=== PATIENT | male | born 1975 | race Two or more races ===

== ENCOUNTER 2018-08-03 18:40 | Inpatient (IN) | payer SELFPAY ==
[~2018-08-03] VITALS: Ht 170.2 cm; Wt 70.8 kg
[2018-08-04] MEDS ORDERED: ONDANSETRON HCL 4MG/2ML INJ IV STA (01:23)
[2018-08-04] MEDS ORDERED: MORPHINE SULFATE 4 MG/ML CPJ (NOT FOR IM USE) IV STA (01:23)
[2018-08-04] MEDS ORDERED: SODIUM CHLORIDE 0.9% 1,000 ML IV ONE (01:23)
[2018-08-04 02:08] LABS: HEMOGLOBIN. 14.7 g/dL (14.0-18.0); MEAN CORPUSCULAR HEMOGLOBIN 29.8 pg (28.0-32.0); MEAN CORPUSCULAR VOLUME 87.1 fL (80.0-94.0); MEAN PLATELET VOLUME 10.6 fl (7.4-10.4); PLATELET 175 x1000/uL (130-400); RED BLOOD CELL COUNT 4.94 mill/uL (4.7-6.1); RED CELL DISTRIBUTION WIDTH 12.1 % (11.6-14.6)
[2018-08-04 02:24] LABS: CHLORIDE 101 mEq/L (98-107)
[2018-08-04 02:28] LABS: ETHANOL BLOOD < 10 mg/dL
[2018-08-04 02:57] LABS: PLATELET ESTIMATE NORMAL
[2018-08-04 04:12] LABS: CLARITY URINE CLEAR (CLEAR); COLOR URINE YELLOW (YELLOW); KETONES URINE 1+ (NEGATIVE); LEUKOCYTE ESTERASE URINE NEGATIVE (NEGATIVE); NITRITE URINE NEGATIVE (NEGATIVE); OCCULT BLOOD URINE 1+ (NEGATIVE); PH URINE 6.5 (4.5-8.0); PROTEIN URINE NEGATIVE (NEGATIVE); SPECIFIC GRAVITY URINE 1.008 (1.005-1.030); UROBILINOGEN URINE 0.2 E.U./dL (0.2-1.0)
[2018-08-04 04:20] LABS: METHADONE URINE SCREEN NEGATIVE (NEGATIVE); OPIATES URINE SCREEN PRESUMTIVE POSITIVE (NEGATIVE)
[2018-08-04 04:21] LABS: *AMPHETAMINES SCREEN URINE NEGATIVE (NEGATIVE); *BARBITURATES SCREEN URINE NEGATIVE (NEGATIVE); *BENZODIAZEPINES SCREEN URINE NEGATIVE (NEGATIVE); *COCAINE SCREEN URINE NEGATIVE (NEGATIVE); CANNABINOID URINE SCREEN NEGATIVE (NEGATIVE); PHENCYCLIDINE URINE SCREEN NEGATIVE (NEGATIVE)
[2018-08-04] MEDS ORDERED: MAGNESIUM/ALUMINUM HYDROXIDE/SIMETHICONE 30ML UDC PO STA (04:52)
[2018-08-04] MEDS ORDERED: VISCOUS LIDOCAINE 2% 15 ML UDC PO STA (04:52)
[2018-08-04] MEDS ORDERED: FAMOTIDINE 20MG/2ML VIAL IV ONE (05:00)
[2018-08-04] MEDS ORDERED: MORPHINE SULFATE 4 MG/ML CPJ (NOT FOR IM USE) IV ONE (06:00)
[2018-08-04] MEDS ORDERED: KETOROLAC 30MG/ML VIAL IV ONE (10:00)
[2018-08-04 17:00] VITALS: BP 105/66
[2018-08-04 18:00] VITALS: BP 105/66
[2018-08-04 20:00] VITALS: BP 106/68
[2018-08-04] MEDS ORDERED: ACETAMINOPHEN 325MG TABLET PO PRN (20:30)
[2018-08-04] MEDS ORDERED: CLONIDINE 0.1MG TABLET PO PRN (20:30)
[2018-08-04] MEDS ORDERED: DIPHENHYDRAMINE 50MG/ML VIAL IV PRN (20:30)
[2018-08-04] MEDS ORDERED: INFLUENZA VIRUS VACCINE(AFLURIA) 0.5ML SYR IM ONE (21:00)
[2018-08-04] MEDS ORDERED: THIAMINE HCL 100MG TABLET PO NR (21:00)
[2018-08-04] MEDS ORDERED: PNEUMOCOCCAL 23-VAL P-SAC VAC 0.5 ML IM ONE (21:00)
[2018-08-04] MEDS ORDERED: MVI, ADULT NO.1 10 ML, FOLIC ACID 1 MG in SODIUM CHLORIDE 0.9% 1,000 ML IV SCH ×3 (23:00)
[2018-08-05] VITALS (7 sets, daily range): BP systolic 94–106; BP diastolic 47–67
[2018-08-05] MEDS: SODIUM CHLORIDE 0.9% 1,000 ML IV SCH ×2 (06:30→16:30)
[2018-08-05] MEDS: KETOROLAC 30MG/ML VIAL IV PRN ×2 (06:51→20:17)
[2018-08-05] MEDS ORDERED: PANTOPRAZOLE SODIUM 40 MG/VIAL IV SCH (09:00)
[2018-08-05] MEDS: ONDANSETRON HCL 4MG/2ML INJ IV PRN (20:07)
[2018-08-05] MEDS: PANTOPRAZOLE SODIUM 40 MG/VIAL IV SCH (20:21)
[2018-08-06 04:00] VITALS: BP 91/52
[2018-08-06] MEDS: SODIUM CHLORIDE 0.9% 1,000 ML IV SCH ×2 (07:02→13:23)
[2018-08-06] MEDS: KETOROLAC 30MG/ML VIAL IV PRN (07:09)
[2018-08-06 08:00] VITALS: BP 103/31
[2018-08-06] MEDS: PANTOPRAZOLE SODIUM 40 MG/VIAL IV SCH (09:10)
[2018-08-06] MEDS: ONDANSETRON HCL 4MG/2ML INJ IV PRN ×2 (09:19→13:40)
[2018-08-06 10:38] LABS: BASOPHILS % 0.5 % (0.0-2.0); EOSINOPHILS % 14.2 % (0.0-5.0); HEMATOCRIT. 41.2 % (42.0-52.0); LYMPHOCYTES % 28.3 % (20.0-50.0); MEAN CORPUSCULAR HEMOGLOBIN 29.6 pg (28.0-32.0); MONOCYTES % 9.7 % (2.0-8.0); NEUTROPHILS % 47.3 % (40.0-76.0); PLATELET 183 x1000/uL (130-400); RED BLOOD CELL COUNT 4.74 mill/uL (4.7-6.1); RED CELL DISTRIBUTION WIDTH 12.1 % (11.6-14.6)
[2018-08-06 11:19] LABS: CHLORIDE 107 mEq/L (98-107)
[2018-08-06 12:00] VITALS: BP 90/49
[2018-08-06] MEDS ORDERED: BISACODYL 5MG TABLET PO SCH (14:00)
[2018-08-06 16:13] VITALS: BP 90/49
[2018-08-06] MEDS ORDERED: METOCLOPRAMIDE HCL 10MG/2ML VIAL IV SCH (18:00)
== END 2018-08-06 17:58 | disposition home or self-care (01) | DRG 241 ==
LOC: ER 18:40 → 7WST 08-04 09:53 → ENRESERV 08-04 15:28
PROVIDERS: ADMIT Internal Medicine; ATTEND Internal Medicine
DX: K29.70 Gastritis, unspecified, without bleeding (principal); K70.0 Alcoholic fatty liver; F10.20 Alcohol dependence, uncomplicated; F17.200 Nicotine dependence, unspecified, uncomplicated; K59.00 Constipation, unspecified; Z79.899 Other long term (current) drug therapy
CPT/HCPCS: 36415; 71045; 74176; 76705; 80305; 84484; 90686; 90732; 93005; 96361; 96374; 96375; 99285; C9113; G0482; J1885; J2270; J2405; J3490; J7030